=== PATIENT | female | born 1970 | race Caucasian/White ===

== ENCOUNTER 2016-12-02 13:42 | Emergency (ER) | payer MEDICARE, MEDICAID ==
[2016-12-02] MEDS ORDERED: DILAUDID 1 MG/ML AMP ONE ×2 (14:02→15:59)
[2016-12-02] MEDS ORDERED: ONDANSETRON ODT 4 MG TAB ONE (14:02)
[2016-12-02] MEDS ORDERED: CYCLOBENZAPRINE 10 MG TAB ONE (14:02)
== END 2016-12-02 16:07 | disposition home or self-care (01) ==
LOC: ER 13:42 → FASTR 16:07
DX: M47.892 Other spondylosis, cervical region (principal); S16.1XXA Strain of muscle, fascia and tendon at neck level, initial encounter; M54.2 Cervicalgia; M54.12 Radiculopathy, cervical region; J10.1 Influenza due to other identified influenza virus with other respiratory manifestations; Z79.899 Other long term (current) drug therapy; F17.210 Nicotine dependence, cigarettes, uncomplicated
CPT/HCPCS: 71020; 72050; 87804; 87880; 96372; 99284; J1170